=== PATIENT | female | born 1945 | race Two or more races ===

== ENCOUNTER 2016-05-07 15:38 | Emergency (ER) | payer OTHER ==
[~2016-05-07] VITALS: Ht 160 cm; Wt 81.6 kg
[2016-05-07] MEDS ORDERED: LORazepam 0.5 MG TAB PO ONE (19:30)
[2016-05-07 20:01] LABS: Hematocrit 41.3 % (36.0-46.0); Hemoglobin 13.1 g/dL (12.2-16.2); Mean Corpuscular Hemoglobin 29.8 pg (28.0-32.0); Mean Corpuscular Hgb Conc. 31.7 g/dL (32.0-36.0); Mean Corpuscular Volume 93.8 fL (80.0-100.0); Mean Platelet Volume 10.5 fL (7.4-10.4); Platelet Count (auto) 223 10^3/uL (140-450); Red Cell Distribution Width 12.9 % (11.6-16.0); SUSPECT VIEW TRANSMISSION; White Blood Cell 21.8 10^3/uL (4.4-10.8)
[2016-05-07 20:28] LABS: Metamyelocytes % 0; Myelocytes % 0
[2016-05-07 20:29] LABS: Promyelocytes % 0; Reactive Lymphocytes 0
[2016-05-07 20:42] LABS: Albumin 3.6 g/dL (3.4-5.0); BUN/Creatinine Ratio 11.5; Potassium 3.9 mmol/L (3.5-5.1)
[2016-05-07 20:44] LABS: Bilirubin, Total 0.4 mg/dL (0.2-1.0); Total Protein 7.2 g/dL (6.4-8.2)
[2016-05-07 21:55] LABS: Platelet Estimate Adequate
[2016-05-07 23:15] LABS: Urine Bilirubin Negative (Negative); Urine Blood Negative /uL (Negative); Urine Color Yellow (Yellow); Urine Glucose Normal (Normal); Urine Ketone Negative (Negative); Urine RBC 13 /hpf (0 - 4); Urine Urobilinogen Normal (Negative)
[2016-05-07 23:16] LABS: Urine Mucus Few (None Seen); Urine Nitrite Positive (Negative); Urine Squamous Epithelial Cell Many /hpf (<5); Urine Trichomonas Present (None Seen)
[2016-05-07 23:23] VITALS: BP 118/74
[2016-05-07] MEDS ORDERED: cefTRIAXone SOD 1,000 MG VL ONE (23:43)
[2016-05-07] MEDS ORDERED: cefTRIAXone W LIDOCAINE 1 GM IM IM ONE (23:45)
== END 2016-05-07 23:46 | disposition home or self-care (01) ==
LOC: EDBD 15:38 → ER 15:42
DX: F41.0 Panic disorder [episodic paroxysmal anxiety] (principal); G20 Parkinson's disease; N39.0 Urinary tract infection, site not specified; R25.1 Tremor, unspecified; I10 Essential (primary) hypertension; F17.210 Nicotine dependence, cigarettes, uncomplicated; Z88.8 Allergy status to other drugs, medicaments and biological substances
CPT/HCPCS: 36415; 80053; 81001; 85007; 85027; 96372; 99284; J0696